=== PATIENT | female | born 1985 | race Caucasian/White ===

== ENCOUNTER 2017-10-30 18:02 | Emergency (ER) | payer MEDICAID ==
[~2017-10-30] VITALS: Ht 160 cm; Wt 59.2 kg
[2017-10-30 18:06] VITALS: BP 109/72
[2017-10-30] MEDS ORDERED: LIDOCAINE 2%, 10ML INFIL ONE (18:30)
[2017-10-30] MEDS ORDERED: PENICILLIN VK 500MG TABLET PO ONE (18:47)
[2017-10-30] MEDS ORDERED: PENICILLIN VK 500MG TABLET ONE (18:52)
== END 2017-10-30 19:00 | disposition home or self-care (01) ==
LOC: ED 18:54
DX: K04.6 Periapical abscess with sinus (principal); F17.200 Nicotine dependence, unspecified, uncomplicated
CPT/HCPCS: 99283